=== PATIENT | male | born 1965 | race Caucasian/White ===

== ENCOUNTER 2020-07-02 23:57 | Emergency (ER) | payer BC ==
[~2020-07-02] VITALS: Ht 167.6 cm; Wt 78.0 kg
[~2020-07-02 23:57] MED LIST: AMOXICILLIN500 MG PO; CARAFATE1 GM PO; CYCLOBENZAPRINE10 MG PO; DAILY MULTIPLE1 EACH PO; GABAPENTIN300 MG PO; KETOROLAC TROME10 MG PO; OMEPRAZOLE20 MG PO; RANITIDINE HCL300 MG PO
[2020-07-03] MEDS ORDERED: MELOXICAM15 MG PO (00:10)
[2020-07-03] MEDS ORDERED: SUCRALFATE1 GM PO (00:11)
[2020-07-03] MEDS ORDERED: MINIPRESS1 MG PO (00:11)
--- NOTE | 2020-07-03 06:43 | EKG ---
[facility] [address] [facility] [place] [address] Signed Normal sinus rhythm Nonspecific T wave abnormality Abnormal ECG No previous ECGs available Confirmed by BRITTANI WEIR MD ([id number]) on 07/03/2020 6:42:50 AM Electronically Signed By: BRITTANI WEIR MD 07/03/20 0643 PATIENT NAME: TYRELL VALENTE Electrocardiogram DATE OF : 65 PHYSICIAN: BRITTANI WEIR MD REPORT #: [id number] REPORT IS CONFIDENTIAL AND NOT TO BE RELEASED WITHOUT AUTHORIZATION
== END 2020-07-03 02:35 | disposition home or self-care (01) ==
LOC: ED 23:57
DX: I95.9 Hypotension, unspecified (principal); F17.200 Nicotine dependence, unspecified, uncomplicated; Z79.899 Other long term (current) drug therapy
CPT/HCPCS: 71045; 80053; 81001; 83735; 84484; 85025; 93005; 93010; 99285-25; J7030

== ENCOUNTER 2021-08-24 08:54 | Day surgery (SDC) | payer BC, OTHER ==
[~2021-08-24] VITALS: Ht 167.6 cm; Wt 76.2 kg
[~2021-08-24 08:54] MED LIST changes: +LISINOPRIL20 MG PO; +LOSARTAN-HCTZ1 EAC2 PO; +MELOXICAM15 MG PO; +MINIPRESS1 MG PO; +PEPCID40 MG PO; +SUCRALFATE1 GM PO
--- NOTE | 2021-08-24 13:21 | NUR ---
08/24/21 1321 Cathy Castellanos 1312- PT ARRIVES TO PACU NONAROUSABLE TO NOXIOUS STIMULI WITH AN OPA IN PLACE. OXYGEN SAT HIGH 80'S TO LOW 90'S ON 10L VIA CO2 NC. CO2 NC PLACED IN OPA PT IS MOUTH BREATHING. RESP SHALLOW AND RAPID. ALLIGATOR TRAPPER AT BEDSIDE.
--- NOTE | 2021-08-27 07:45 | OR ---
[facility] [address] [place], [place] [address] Signed DATE OF OPERATION: 08/24/2021 SURGEON: Tino Rodriguez MD PREOPERATIVE DIAGNOSES: 1. Gastroesophageal reflux disease. 2. History of duodenitis. 3. History of the duodenal ulcer. 4. Recurrent epigastric abdominal pain. 5. Daily use of tobacco, alcohol, and caffeine. 6. Dry cough. POSTOPERATIVE DIAGNOSES: 1. Tusu-gq-jhfydttm diffuse gastritis. 2. Small hiatal hernia. 3. Kpru-lx-oozyubzg disruption of the Z-line. 4. Possible small esophageal varices. PROCEDURES: Esophagogastroduodenoscopy with CLOtest and biopsies of the pyloric bulb and antrum. ESTIMATED BLOOD LOSS: None. INDICATIONS: Kiran is a 55-year-old gentleman, asked to see me for followup endoscopy. I helped him with an upper endoscopy back in 2017 for epigastric abdominal pain. He had duodenitis at that time with a small duodenal ulcer in his pyloric channel. He also had some inflammation around the GE junction. We could not see an obvious hiatal hernia; however, he continues to drink six beers a day and he smoked up to 1.5 packs of cigarettes each day. He said he drinks lots of caffeine every day. He said this summer he is having trouble with recurrent epigastric abdominal pain. He said the acid reflux was worse at night when he lies supine. He said he often wakes up and has to spit into a bucket. He has been using his omeprazole in the morning and his famotidine in the evening. He also uses sucralfate. He discontinued all of his nonsteroidal anti-inflammatory medications. Overall, he said he does feel better. He had been to his primary care provider. He was asked to see me for a repeat upper endoscopy given his ongoing symptoms. I also noticed a very dry cough always in the office. He said he is out in the garage quite a bit, he is very dry in the winter. In the summer, he actually has a humidifier to help in the garage. Overall, it looks like his dry cough Electronically Signed By: TINO RODRIGUEZ MD 08/27/21 0745 PATIENT NAME: TYRELL VALENTE OPERATIVE REPORT DATE OF : 65 REPORT #: [id number] PHYSICIAN: TINO RODRIGUEZ MD PCP: FIDELIA GOMEZ REPORT IS CONFIDENTIAL AND NOT TO BE RELEASED WITHOUT AUTHORIZATION [facility] [address] [place], [place] [address] Signed is better today. In the office, I gave him a pamphlet on upper endoscopy. He recalls the test quite well. He understands there is risk including, but not limited to gas bloating, crampy abdominal pain, bleeding, perforation requiring surgery, and missed diagnosis. He had expressed understanding and wished to proceed. He is well aware of the need for monitored anesthesia care given his medical history and his very full round face and heavy neck. He had expressed understanding and wished to proceed. DESCRIPTION OF PROCEDURE: Kiran was taken into our endoscopy suite and placed in a supine semi-recumbent position. He was given propofol per our nurse chief contract officer. The posterior oropharynx was anesthetized with lidocaine spray. Unfortunately, he was still fighting and he was hypoxic and we had to add some ketamine, after that he settled right down. The adult gastroscope was introduced and advanced down into the third portion of the duodenum. The duodenum was unremarkable. Just a little bit of irritation in the pyloric bulb. 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 He does have oduz-ul-jhawvkcy diffuse gastritis. No ulcerations in the pyloric bulb or the stomach. We took a biopsy of the pyloric bulb as well as the antrum for pathologic review. We took a biopsy of the antrum for CLOtest. Upon retroflexion of scope, it looks like he has just a small hiatal hernia on this occasion. The scope was withdrawn up through the area of GE junction, which was compliant without stricture. He does have mauf-vg-jiajbfpw disruption to the Z-line, no Nelson's mucosa. He was coughing quite a bit and it was hard to tell, but he may have some early esophageal varices; however, his preoperative liver function tests as well as his platelet count are unremarkable. There was no distal esophagitis. The middle and upper esophagus were unremarkable. It looks like his vocal cords and his arytenoids are fine. After this, the gas had been suctioned out and the gastroscope removed. Kiran tolerated the procedure overall well with the addition of the ketamine. RECOMMENDATIONS: I will see Kiran back in my office in 7 to 14 days to review his results. He certainly could consider an ultrasound of his liver through his primary care provider. Also, given his long history of smoking and his cough, he might consider a CT scan of his lungs through his primary care provider. Tino Rodriguez MD ALB/MODL /[id number] Electronically Signed By: TINO RODRIGUEZ MD 08/27/21 0745 PATIENT NAME: TYRELL VALENTE OPERATIVE REPORT DATE OF : 65 REPORT #: [id number] PHYSICIAN: TINO RODRIGUEZ MD PCP: FIDELIA GOMEZ REPORT IS CONFIDENTIAL AND NOT TO BE RELEASED WITHOUT AUTHORIZATION [place] [id number] [facility] [place] [address] Signed cc: Patient Chart Fidelia Gomez, Nurse Practitioner Tino Rodriguez MD Copies: TINO RODRIGUEZ MD ~ Electronically Signed By: TINO RODRIGUEZ MD 08/27/21 0745 PATIENT NAME: TYRELL VALENTE OPERATIVE REPORT DATE OF : 65 REPORT #: [id number] PHYSICIAN: TINO RODRIGUEZ MD PCP: FIDELIA GOMEZ REPORT IS CONFIDENTIAL AND NOT TO BE RELEASED WITHOUT AUTHORIZATION
--- NOTE | 2021-08-28 16:20 | PATH ---
[facility] [address] [place], [place] [address] Signed SPECIMEN(S): A PYLORIC FOLD BIOPSY SPECIMEN(S): B ANTRUM BIOPSY SPECIMEN SOURCE: A. PYLORIC FOLD BIOPSY B. ANTRUM BIOPSY CLINICAL HISTORY: GERD; possible recurrent duodenal ulcer. FINAL PATHOLOGIC DIAGNOSIS: A. Pyloric fold, biopsy: - Predominantly duodenal mucosa with features of peptic duodenitis and focal heterotopic gastric oxyntic glands. - Negative for Helicobacter organisms on HE stain. - Negative for dysplasia or malignancy. B. Stomach, antrum, biopsy: - Antral mucosa with focal chronic, inactive gastritis. - Negative for Helicobacter organisms on HE stain, see comment. - Negative for dysplasia or malignancy. COMMENT: Regarding specimen B: An H. pylori immunohistochemical stain is pending and will be reported in an addendum. NAL:cml:C2NR MICROSCOPIC EXAMINATION: Histologic sections of all submitted blocks are examined by light microscopy. These findings, together with the gross examination, support the pathologic diagnosis. GROSS DESCRIPTION: Two specimens are received in two containers, labeled "JS." A. The specimen, labeled "JS, biopsy, pyloric fold," is received in formalin and consists of one castro soft tissue fragment that measures 0.2 cm in greatest dimension. The specimen is entirely submitted in cassette (A1). B. The specimen, labeled "JS, biopsy, antrum," is received in formalin and consists of one elongated castro soft tissue fragment that measures 0.8 cm in greatest dimension. The specimen is entirely submitted in cassette (B1). PATIENT NAME: TYRELL VALENTE PATHOLOGY DATE OF : 65 REPORT #: [id number] PHYSICIAN: HUMPHREY ALVAREZ PCP: KAI GARCÍA REPORT IS CONFIDENTIAL AND NOT TO BE RELEASED WITHOUT AUTHORIZATION [facility] [address] [place] [address] Signed AI (under the direct supervision of a pathologist) The Gross Description was prepared using a voice recognition system. The report was reviewed for accuracy; however, sound-alike word errors, addition and/or deletions may occur. If there is any question about this report, please contact Client Services. PERFORMING LABORATORY: The technical component was performed by [facility] [address] (Dive Superintendent: May Clark MD; CLIA# [id number]).Professional interpretation was performed by [facility], [address] [address] (CLIA# [id number]). Diagnostician: Mayi Kumar MD Pathologist Electronically Signed 08/28/2021 Copies: ~ PATIENT NAME: TYRELL VALENTE PATHOLOGY DATE OF : 65 REPORT #: [id number] PHYSICIAN: HUMPHREY PATHOLOGY PCP: KAI GARCÍA REPORT IS CONFIDENTIAL AND NOT TO BE RELEASED WITHOUT AUTHORIZATION
== END 2021-08-24 14:06 | disposition home or self-care (01) ==
LOC: OPS 08:54 → DS 08:54 → OPS 11:35
PROVIDERS: ATTEND Colon & Rectal Surgery
PROC: 0DB78ZX Excision of Stomach, Pylorus, Via Natural or Artificial Opening Endoscopic, Diagnostic (ICD-10-PCS; principal; 2021-08-24 11:35)
DX: K29.50 Unspecified chronic gastritis without bleeding (principal); K29.80 Duodenitis without bleeding; K44.9 Diaphragmatic hernia without obstruction or gangrene; K21.9 Gastro-esophageal reflux disease without esophagitis; Z87.19 Personal history of other diseases of the digestive system; E78.5 Hyperlipidemia, unspecified; I10 Essential (primary) hypertension; F17.210 Nicotine dependence, cigarettes, uncomplicated; G47.33 Obstructive sleep apnea (adult) (pediatric); Z72.89 Other problems related to lifestyle
CPT/HCPCS: 36415; 87077; J2704; J7121

== ENCOUNTER 2021-09-01 21:10 | Emergency (ER) | payer BC, OTHER ==
[~2021-09-01] VITALS: Ht 167.6 cm; Wt 78.0 kg
== END 2021-09-01 23:36 | disposition home or self-care (01) ==
LOC: ED 21:10
DX: E86.0 Dehydration (principal); R55 Syncope and collapse; I10 Essential (primary) hypertension; F17.200 Nicotine dependence, unspecified, uncomplicated; Z79.899 Other long term (current) drug therapy
CPT/HCPCS: 36415; 80048; 83735; 85025; 99284

== ENCOUNTER 2025-04-05 08:23 | Day surgery (SDC) | payer BC, OTHER ==
[2024-10-26 14:25] VITALS: BP 125/87
--- NOTE | 2024-10-28 13:50 | NUR ---
RECEIVED ALL RECORDERS FROM PCP AND [facility] AND NO INFORMATION REGARDING PT HAVING A-FIB. DR UBALDO SPENCER WILL CALL PT AND GET HIM CANCLED FOR SURGERY AND SET HIM UP FOR A CARDIO VISIT.
[2025-03-31 10:30] VITALS: BP 125/87
[~2025-04-05] VITALS: Ht 167.6 cm; Wt 75.0 kg
[~2025-04-05 08:23] MED LIST changes: +BACLOFEN20 MG PO; +DESONIDE15 GM TOP; +ECONAZOLE NITRA30 GM TOP; +ELIQUIS5 MG PO; +FEOSOL45 MG PO; +IBLOOD GLUCOSE TEST STRIP 1 EA TEST VI PRN; +KETOCONAZOLE120 ML TOP; +LACTATED RINGER'S 1,000 ML IV SCH; +LIDOCAINE HCL 1% 5 ML SDV INJ ONE; +METFORMIN HCL500 M3 PO; +METHIMAZOLE5 MG PO; +METOPROLOL SUCC50 MG PO; -MINIPRESS1 MG PO; +MULTI VITAMIN1 EACH PO; +PRAZOSIN HCL1 MG PO; -SUCRALFATE1 GM PO; +TRAMADOL HCL50 MG PO
[2025-04-05 08:38] VITALS: BP 136/96
[2025-04-05 08:53] LABS: BASOPHILS 0.6 % (0.2-1.2); EOSINOPHILS 3.1 % (0.8-7.0); LYMPHOCYTES 23.2 % (21.8-53.1); MCH 30.9 PG (25.7-32.2); MCHC 33.2 g/dL (32.3-36.5); MCV 93.1 fL (79.0-92.2); MONOCYTES 9.2 % (5.3-12.2); NEUTROPHILS 63.6 % (34.0-67.9); RBC 5.18 M/uL (4.63-6.08)
[2025-04-05 09:08] LABS: ALT (SGPT) 23.0 U/L (14-59); AST (SGOT) 15.0 U/L (15-37); GLOMERULAR FILTRATION RATE,EST 102.0 mL/min (>60); PROTEIN, TOTAL 7.8 g/dL (6.4-8.2); UREA NITROGEN 9.0 mg/dL (7-18)
[2025-04-05] MEDS ORDERED: CEFAZOLIN SODIUM 2 GM in SODIUM CHLORIDE 0.9% 100 ML IV SCH (10:28)
[2025-04-05] MEDS ORDERED: Ropivacaine HCl 0.5% 30 ML VIAL ONE (10:40)
[2025-04-05] MEDS ORDERED: LIDOCAINE HCL 2% 5 ML SDV ONE (10:40)
[2025-04-05] MEDS ORDERED: MIDAZOLAM HCL 2 MG/2 ML VIAL ONE (10:41)
[2025-04-05] MEDS ORDERED: fentaNYL citrate 100 MCG/2 ML VIAL ONE (11:02)
[2025-04-05] MEDS ORDERED: ESMOLOL HCL 100 MG/10 ML VIAL IV ONE (11:04)
[2025-04-05] MEDS ORDERED: DEXAMETHASONE SOD PHOS 4 MG/ML VIAL ONE (11:28)
[2025-04-05] MEDS ORDERED: METOPROLOL TARTRATE 5 MG/5 ML VIAL ONE (11:28)
[2025-04-05] MEDS ORDERED: GLYCOPYRROLATE 1 MG/5 ML MDV ONE (11:28)
[2025-04-05] MEDS ORDERED: PHENYLEPHRINE HCL IN 0.9% NACL 1 MG/10 ML SYR ONE (11:28)
[2025-04-05] MEDS ORDERED: IBLOOD GLUCOSE TEST STRIP 1 EA TEST VI PRN (11:30)
[2025-04-05] MEDS ORDERED: fentaNYL citrate 50 MCG/ML SDV IV PRN (11:30)
[2025-04-05] MEDS ORDERED: HYDROmorphone HCL 1 MG/ML SYR IV PRN (11:30)
[2025-04-05] MEDS ORDERED: NALOXONE HCL 0.4 MG SYR IV PRN (11:30)
[2025-04-05] MEDS ORDERED: ACETAMINOPHEN 1,000 MG/100 ML VIAL ONE (11:32)
--- NOTE | 2025-04-05 12:32 | NUR ---
04/05/25 1232 Cathleen Kumar LE 1154: PT ARRIVES TO PACU NON AROUSAL OR REACTIVE. HE IS POORLY EXCHANGING O2 ON 6L VIA MASK. JAW THRUST IS PERFORMED, THE PT'S JAW WAS REALLY TIGHT, MAKING THE JAW THRUST DIFFICULT. LE 1203: WAREHOUSE GENERAL LABORER PLACED ORAL AIRWAY AT THE BEDSIDE. THIS IMPROVED HIS OXYGEN EXCHANGE AND BREATHING. LE 1205: PT BEGAN TO HOLD HIS BREATH EVEN WITH ORAL AIRWAY IN PLACE. HE SPONTANESOULY WAKES UP, SLIGHTLY STARTLED. HE DOES NOT FOLLOW DIRECTIONS TO OPEN HIS MOUTH AND UNCLENCH HIS JAW IMMEDIATELY, ORAL AIRWAY IS REMOVED AT 1208. LE 1210: PT TASKES OFF HIS OXYGEN MASK. HE CONTINUES TO POORLY EXCHANGE HIS BREATH FOR PERIODS OF TIME. LE 1216: PT IS SLIGHTLY COMBATIVE AND RESISTIVE TO ANY ENCOURAGEMENT TO TAKE DEEP BREATHS OR HOLS HIS ARM STILL FOR BP - STATING THAT THIS RN IS DEMANDING OR ASKING IF THIS RN "YOU GOING TO HIT ME?" AT THE DENIAL, HE STATES THAT "VIOLENCE IS FUN AND NECESSARY. A LOT OF PROBLEMS WOULD BE SOLVED WITH VIOLENCE."
--- NOTE | 2025-04-05 12:49 | NUR ---
PT ARRIVES TO DS FROM PACU VIA STRETCHER. PT A&O AND ASKING QUESTIONS APPROPRIATELY. PT REPORTS NO NEED FOR PRN PAIN MED AT THIS TIME. PT REPORTS NO NAUSEA, WATER TOLERATED WITHOUT DIFFICULTY SWALLOWING. JELLO AND CRACKERS PROVIDED. PT RESPIRATIONS EVEN AND UNLABORED ON RA, O2 >90%, NO SIGNS OF DISTRESS. CALL LIGHT WITHIN REACH, GLASSES AND PHONE IN PT POSSESSION.
[2025-04-05 12:51] VITALS: BP 113/73
[2025-04-05] MEDS ORDERED: SEVOFLURANE 250 ML BTL INH ONE (13:30)
--- NOTE | 2025-04-05 13:50 | NUR ---
PT SITS AT EDGE OF BED, PT STATES USUALLY USES CANE AT HOME FOR STABILIZATION BUT FORGOT IT TODAY. THIS RN PROVIDED 1PA W/AMBULATION TO RESTROOM. PT UNABLE TO URINE VOID AT THIS TIME. PT BACK TO BED. ICE PACK IN PLACE. PT REPORTS PAIN REMAINS TOLERABLE AND NO NEED FOR PRN PAIN MED. CALL LIGHT WITHIN REACH. PT STATES NO FURTHER NEEDS OR QUESTIONS AT THIS TIME.
[2025-04-05 13:59] VITALS: BP 100/76
--- NOTE | 2025-04-05 14:35 | NUR ---
PT RESTING W/EYES CLOSED. RESPIRATIONS EVEN AND UNLABORED, NO SIGNS OF DISTRESS.
--- NOTE | 2025-04-05 15:10 | NUR ---
IN PT ROOM FOR VS AND ASSESSMENT. PT CONTINUES TO REPORT NO URGE TO URINE VOID. BLADDER SCAN VOLUME ONLY 364 ML. BLADDER PALPATED AND ONLY SLIGHT DISCOMFORT WITH PROBE MOVEMENT OVER BLADDER PER PT. NO ACUTE CHANGES FROM PREVIOUS ASSESSMENT. PT STATES PAIN REMAINS TOLERABLE. CALL LIGHT WITHIN REACH, PT CONTINUES TO DRINK FLUIDS. PT STATES NO FURTHER NEEDS OR QUESTIONS AT THIS TIME.
[2025-04-05 15:15] VITALS: BP 119/89
--- NOTE | 2025-04-05 15:35 | NUR ---
THIS RN ANSWERS PT CALL LIGHT. PT STATES HE BELIEVES HE HAS URGE TO URINE VOID. ASKED PT IF HE WOULD RATHER WALK TO RESTROOM OR JUST STAND AT BEDSIDE AND USE URINAL. PT STATES HE WOULD RATHER STAND AT BEDSIDE. CALL LIGHT WITHIN REACH, THIS RN OUTSIDE OF DOOR WITH JUST CURTAIN PULLED. PT STATES TO SHUT THE DOOR BECAUSE "YOU DON'T WANT TO HEAR THIS". PT STATES HE HAS FINISHED AND URINE VOID OF 350 ML RECORDED. PT WALKING ON OTHER SIDE OF THE BED NEAR CHAIR W/CANS IN HAND. PT HAD PULLED CAN OUT OF GARBAGE AND PLACED PAPER TOWEL IN CAN BECAUSE "YOU CAN'T WASTE THE 20 CENTS". PT NOW SITTING AT EDGE OF BED. THIS RN BRINGS CLOTHES TO PT AT BEDSIDE AND PT TO GET DRESSED. PT ENCOURAGED TO AVOID BENDING OVER AND PLACE SUPPORT WITH HAND TO SURGICAL SITE, PT STATES VERBAL UNDERSTANDING. CALL LIGHT WITHIN REACH. THIS RN STANDING OUTSIDE DOOR.
--- NOTE | 2025-04-05 16:00 | NUR ---
THIS RN SEES PT ON GROUND WHILE STANDING OUTSIDE THE DOOR. DOOR OPENED AND ASKED PT WHY HE IS ON THE GROUND, PT STATES HE IS CLEANING UP ICE HE SPILT WHEN ATTEMPTING TO EMPTY ICE BAG. ASKED PT IF HE COULD GET OFF OF GROUND, HE STATES "THESE ANTI SLIP SOCKS SUCK, IF I DON'T CLEAN THIS UP ITS JOSHUA PISS ME OFF". PT STANDS UP AND THIS RN PLACES TOWEL OVER ICE WHILE PT CONTINUES TO GET DRESSED. THIS RN REMAINS OUTSIDE OF THE DOOR. PT SITTING IN BED WHEN ALBA RN TO ROOM TO TALK TO PT. PT NOW STATES TO ALBA RN THAT HE FELL OVER BY THE GARBAGE CAN BECAUSE HIS LEFT LEG WENT NUMB. THIS RN IN ROOM TO EVALUATE AND ASKED PT IF HE IS EXPERIENCING PAIN ANYWHERE, PT STATES THE OUTSIDE OF HIS LFT FOOT IS PAINFUL. DARA MARR IN ROOM AND AWARE OF LEG NUMBNESS, EXPLAINS TO PT THAT HE WILL BE WHEELCHAIRED OUT AND THERE WAS A BLOCK PLACED NEAR SURGICAL SITE. CONTINUED TO RECEIVE VO FROM PT THAT POST UNWITNESSED FALL AND REPORTED OUTER LEFT FOOT PAIN, OK FOR PT TO DC. THIS RN OFFERS PT WC RIDE TO EMERGENCY ROOM TO BE EVALUATED. PT STATES "WELL MY RIDE IS ALREADY ON HIS WAY". THIS RN RETRIEVES PLASMA SPECIALIST BETO AND BRING TO PT BEDSIDE. PT IS STANDING UP AGAIN W/NO ASSISTED DEVICES IN DOORWAY. THIS RN ENCOURAGES PT TO SIT DOWN. PT AGAIN OFFERED W/PLASMA SPECIALIST AT BEDSIDE TO GO TO EMERGENCY ROOM AFTER DC FROM UNIT. PT STATES HE WOULD LIKE TO BECAUSE "I KNOW ITS NOT BROKEN, BUT IT STARTED HURTING AFTER I PUT MY SHOE ON AND I THINK IT MIGHT BE SPRAINED", PT STATES HE WOULD LIKE WC RIDE TO EMERGENCY ROOM FOR EVALUATION. PT IV DC'ED BY THIS RN, PT STATES "I CAN DO IT" AND CONTINUES TO TRY AND REMOVE IV HIMSELF. THIS RN PLACES COBAN AND GAUZE IN PLACE. DC EDUCATION PROVIDED TO PT, PT STATES VERBAL UNDERSTANDING AND NO FURTHER QUESTIONS OR NEEDS AT THIS TIME. ALL BELONGINGS IN PT POSSESSION. PT TO ED ADMITTING VIA WC. DARA MARR AWARE OF PT GOING TO ED FOR LFT FOOT EVALUATION POST UNWITNESSED FALL.
--- NOTE | 2025-04-05 17:47 | NUR ---
PT CALLS DS UNIT TO DISCUSS MEDICATION PRESCRIPTION SCRIPT WRITTEN BY DR. DIAMOND. PT STATES HE WOULD LIKE TO KNOW MORE ABOUT THE MEDICATIONS AND WHY HE NEEDS TO FILL PRESCRIPTIONS BECAUSE HE HAS PAIN MEDICATIONS AT HOME. THIS RN EXPLAINS ABX PRESCRIPTION AND OPIOID PRESCRIPTION TO PT, PT STATES VERBAL UNDERSTANDING OF EDUCATION PROVIDED. PT STATES HE HAS 4 GRANDKIDS AND IT SAYS HE CANNOT DRIVE FOR 1 WEEK POST-OP. LET PT KNOW THESE ARE THE INSTRUCTIONS PROVIDED BY THIS DR AND IF HE WOULD LIKE TO DISCUSS THEM HE SHOULD CALL DR. DIAMOND, PT STATES VERBAL UNDERSTANDING. PT THEN ASKS ABOUT PT NURSING SHIFTS AND THAT HE WOULD MUCH RATHER TALK TO THIS RN BECAUSE I AM NICE, LET PT KNOW ALL NURSES IN UNIT ARE KIND AND WILL BE AVAILABLE TO HELP HIM.
[2025-04-05] MEDS ORDERED: HYDROCODON-ACE1 EA10 PO (21:16)
--- NOTE | 2025-04-06 11:04 | OR ---
[facility] [address] [place], [place] [address] Signed DATE OF OPERATION: 04/05/2025 SURGEON: Damion Bowens DO PREOPERATIVE DIAGNOSIS: Left inguinal hernia. POSTOPERATIVE DIAGNOSIS: Left inguinal hernia with direct left inguinal hernia. PROCEDURE PERFORMED: Repair of inguinal hernia with mesh. ANESTHESIA: General. ESTIMATED BLOOD LOSS: Minimal. DRAINS: None. COMPLICATIONS: None. DESCRIPTION OF PROCEDURE: The patient was brought to the operating room and placed in the supine position. After induction of general anesthesia, an ilioinguinal block was then performed per Anesthesia, and details were contained within the note. The abdomen was then sterilely shaved, prepped, and draped in usual fashion. Utilizing a linear incision over the inguinal canal, skin was incised with a scalpel. Dissection continued down through the layers of the subcutaneous tissue. Bleeding was controlled with electrocautery. External oblique aponeurosis was identified, opened sharply, and the external ring was opened exposing the cord and cord structures. Cord and cord structures were then encircled with a Yasmani drain. A small cord lipoma was noted. It was removed and passed off the field. The cord and cord structures were then brought out of the harm's way. The direct inguinal hernia was found to be with no floor whatsoever. Decision to repair was then made. The inguinal canal was then reinforced with interrupted 0 Ethibond in an interrupted fashion from the apex of the inguinal canal to the level of the internal ring. A piece of onlay mesh was then cut, fashioned and then secured to Electronically Signed By: DAMION BOWENS DO 04/06/25 1104 PATIENT NAME: TYRELL VALENTE OPERATIVE REPORT DATE OF : 65 REPORT #: [id number] PHYSICIAN: DAMION BOWENS DO PCP: HUMAIRA GOETZ PAC REPORT IS CONFIDENTIAL AND NOT TO BE RELEASED WITHOUT AUTHORIZATION [facility] [address] [place], [place] [address] Signed the inguinal canal with interrupted 2-0 Ethibond from the apex to the inguinal canal along the ilioinguinal ligament medially as well along the musculature to above the level of the cord. The entire region was copiously irrigated and dried. No active bleeding sites were apparent. Cord and cord structures were then placed back in their anatomic position. The testicle was reduced. Subcutaneous tissue was then closed with interrupted 3-0 Vicryl. Skin was closed with paulie. Sterile dressing was applied. The patient tolerated the procedure well and went to recovery room in satisfactory condition. DO LINDA Lizarraga/MODL /[id number] Copies: ~ Electronically Signed By: DAMION BOWENS DO 04/06/25 1104 PATIENT NAME: TYRELL VALENTE OPERATIVE REPORT DATE OF : 65 REPORT #: [id number] PHYSICIAN: DAMION BOWENS DO PCP: HUMAIRA GOETZ PAC REPORT IS CONFIDENTIAL AND NOT TO BE RELEASED WITHOUT AUTHORIZATION
== END 2025-04-05 16:45 | disposition home or self-care (01) ==
LOC: DS 08:23
PROVIDERS: Nurse Anesthetist, Certified Registered; ATTEND Surgery
PROC: 0YU60JZ Supplement Left Inguinal Region with Synthetic Substitute, Open Approach (ICD-10-PCS; principal; 2025-04-05 09:40)
DX: K40.90 Unilateral inguinal hernia, without obstruction or gangrene, not specified as recurrent (principal); D17.6 Benign lipomatous neoplasm of spermatic cord; I10 Essential (primary) hypertension; K21.9 Gastro-esophageal reflux disease without esophagitis; E78.5 Hyperlipidemia, unspecified; F43.10 Post-traumatic stress disorder, unspecified; F17.210 Nicotine dependence, cigarettes, uncomplicated; Z79.899 Other long term (current) drug therapy
CPT/HCPCS: 00830; 36415; 80053; 85025; C1781; J0131; J0165; J0688; J1100; J1171; J2003; J2250; J2405; J2704; J2795; J3010; J7121

== ENCOUNTER 2025-04-05 16:50 | Emergency (ER) | payer OTHER, BC ==
[~2025-04-05] VITALS: Ht 167.6 cm; Wt 75.0 kg
[~2025-04-05 16:50] MED LIST changes: -IBLOOD GLUCOSE TEST STRIP 1 EA TEST VI PRN; -LACTATED RINGER'S 1,000 ML IV SCH; -LIDOCAINE HCL 1% 5 ML SDV INJ ONE
[2025-04-05] MEDS ORDERED: TRAMADOL HCL 50 MG TAB PO ONE (20:00)
[2025-04-05] MEDS ORDERED: HYDROCODONE BIT/ACETAMINOPHEN 5/325 MG 1 TAB HOME.PACK PO ONE (21:15)
[2025-04-05] MEDS ORDERED: HYDROCODON-ACE1 EA10 PO (21:16)
[2025-04-05 21:58] VITALS: BP 103/66
== END 2025-04-05 21:58 | disposition home or self-care (01) ==
LOC: ED 16:50
DX: S92.355A Nondisplaced fracture of fifth metatarsal bone, left foot, initial encounter for closed fracture (principal); I10 Essential (primary) hypertension; Z79.899 Other long term (current) drug therapy; F17.200 Nicotine dependence, unspecified, uncomplicated; W18.30XA Fall on same level, unspecified, initial encounter
CPT/HCPCS: 73630; 99283; A9270